=== PATIENT | male | born 1995 | race Caucasian/White ===

== ENCOUNTER 2016-08-12 15:23 | Outpatient (CLI) ==
[2016-02-05 11:46] VITALS: BMI 16.7
[2016-08-12 15:45] LABS: BASOPHILS % (AUTO) 0.3 % (0.0-3.0); EOSINOPHILS # (AUTO) 0.2 K/ul (0.0-0.7); EOSINOPHILS % (AUTO) 2.5 % (0.0-7.0); HEMATOCRIT 44.5 % (42.0-52.0); HEMOGLOBIN 15.9 g/dl (14.0-18.0); IMMATURE GRANULOCYTE % (AUTO) 0.3 % (0.0-5.0); LYMPHOCYTES % (AUTO) 34.3 (10.0-50.0); MEAN CORPUSCULAR HGB CONC 35.7 (31.8-35.4); MEAN CORPUSCULAR VOLUME 89.5 fl (80.0-94.0); MONOCYTES # (AUTO) 0.3 K/uL (0.4-2.0); MONOCYTES % (AUTO) 4.9 (0-10); NEUTROPHILS # (AUTO) 3.4 K/ul (2.0-6.9); NEUTROPHILS % (AUTO) 57.7; PLATELET COUNT 270 10^3/uL (140-440); RED BLOOD COUNT 4.97 10^6/ul (4.70-6.10); WHITE BLOOD COUNT 5.89 K/ul (4.2-10.2)
[2016-08-12 15:46] LABS: BILIRUBIN,URINE Negative (NEGATIVE); KETONES,URINE Trace (NEGATIVE); LEUKOCYTE ESTERASE ,URINE Trace (NEGATIVE); NITRITE,URINE Positive (NEGATIVE); PH,URINE 7.5 (5-9); PROTEIN,URINE Trace (NEGATIVE); URINE, BLOOD Negative (NEGATIVE)
[2016-08-12 15:49] LABS: ADD URINE MICROSCOPIC YES
[2016-08-12 15:51] LABS: BACTERIA,URINE 3+ (NOT PRESENT)
[2016-08-12 15:59] LABS: ALBUMIN 4.1 g/dL (3.4-5.0); ALBUMIN/GLOBULIN RATIO 1.21; ANION GAP 11.2; BILIRUBIN,TOTAL 0.47 mg/dL (0.00-1.20); BUN/CREATININE RATIO 12.69; CALCIUM 9.4 mg/dL (8.2-10.2); CREATININE 0.63 mg/dL (0.60-1.10); POTASSIUM 4.2 mmol/L (3.5-5.1); TOTAL PROTEIN 7.5 g/dL (6.4-8.2)
--- NOTE | 2016-08-12 16:39 | CT ---
EXAM: CT abdomen pelvis without contrast HISTORY: Left flank pain for 1 week COMPARISON: None TECHNIQUE: Serial axial images of the abdomen pelvis were performed from the lung bases through the inferior pelvis without contrast. These were viewed in multiple planes. FINDINGS: The lung bases are clear. Evaluation is limited due to lack of contrast and metallic artifact from the fusion rods in the thor acic and upper lumbar spine. The left kidney demonstrates no stone, hydronephrosis or hydroureter. The right kidney is unremarkable. These are both limited due to streak artifact from adjacent hard cota. The liver is normal. The gallbladder demonstrates layering sludge/stones with no pericholecy stic fluid. The spleen is unremarkable. Limited evaluation of the pancreas is normal. The stomach is distended with debris. The small bowel in the abdomen pelvis is unremarkable. The appendix contains gas. The colon contai ns a moderate amount of stool throughout its course. Urinary bladder is nondistended with no visual ized stone. The osseous structures demonstrate intact posterior fusion rods and screw fixation at L 2 and L3 with deformity at T12 with scattered facet arthropathy. At the area of deformity, T11-T12, there is severe central and neural foraminal narrowing. IMPRESSION: 1. No acute intra-abdominal abnormality or obstructive uropathy to account for patient's left flank pain. 2. Gallstones without evidence of cholecystitis. 3. Hardware in the thorax lumbar spine with deformity contributing to severe central narrowing at T 11-T12. Evaluation is limited due to streak artifact from adjacent hardware.
== END 2016-08-12 15:24 | disposition home or self-care (01) ==
LOC: RAD 15:23
PROVIDERS: ATTEND Emergency Medicine
DX: R10.32 Left lower quadrant pain (principal); G82.20 Paraplegia, unspecified; R33.9 Retention of urine, unspecified; R35.0 Frequency of micturition
CPT/HCPCS: 36415; 80053; 81001; 85025; 87086; 87186

== ENCOUNTER 2016-10-15 16:05 | Outpatient (CLI) | payer OTHER ==
[2016-02-05 11:46] VITALS: BMI 16.7
[2016-10-15 16:24] LABS: BILIRUBIN,URINE Negative (NEGATIVE); KETONES,URINE Negative (NEGATIVE); LEUKOCYTE ESTERASE ,URINE 1+ (NEGATIVE); NITRITE,URINE Positive (NEGATIVE); PROTEIN,URINE Trace (NEGATIVE); URINE, BLOOD Trace-lysed (NEGATIVE)
[2016-10-15 16:26] LABS: ADD URINE MICROSCOPIC YES
[2016-10-15 16:27] LABS: BACTERIA,URINE 3+ (NOT PRESENT)
== END 2016-10-15 16:06 | disposition home or self-care (01) ==
LOC: LAB 16:05
PROVIDERS: ATTEND Nurse Practitioner Family
DX: R82.90 Unspecified abnormal findings in urine (principal)
CPT/HCPCS: 81001; 87086; 87186

== ENCOUNTER 2018-10-28 18:52 | Emergency (ER) ==
[2018-10-28] MEDS ORDERED: SODIUM CHLORIDE 1,000 ML IV STA (19:02)
[2018-10-28] MEDS ORDERED: MORPHINE 2 MG/ML SYRINGE IVP STA ×2 (19:02→20:23)
[2018-10-28] MEDS ORDERED: ZOFRAN 4 MG/2 ML IVP STA (19:03)
[2018-10-28 19:27] VITALS: BMI 19.6
[2018-10-28] MEDS ORDERED: MORPHINE 2 MG/ML SYRINGE ONE (19:58)
[2018-10-28] MEDS ORDERED: DILAUDID 1 MG/ML SYRINGE IVP STA ×2 (20:20→21:25)
[2018-10-28] MEDS ORDERED: ZOSYN 3.375 GM 3.375 GM in SODIUM CHLORIDE 50 ML IV STA (21:12)
--- NOTE | 2018-10-28 21:18 | CT ---
EXAM: CT abdomen pelvis with and without contrast HISTORY: Left flank pain COMPARISON: CT abdomen pelvis 08/12/2016 TECHNIQUE: Serial axial images of the abdomen pelvis were performed before and after 75 mL is of Omn ipaque IV contrast was administered. These were obtained from the lung bases through the inferior pe lvis. FINDINGS: The lung bases are clear. There is free air in the abdomen and pelvis and a non dependent presentation. Liver is unremarkable. The gallbladder is been resected. Adrenal glands are unremarkable. The kidn eys are normal. Spleen is unremarkable. Pancreas is normal. The stomach is unremarkable. There is minimal gas in the abdominal mesentery. The small bowel is unremarkable. The colon demonst rates thickening and inflammatory stranding surrounding the distal sigmoid colon. There is fluid in the right lower quadrant. The appendix is normal in appearance. There is thickening and mild enhanc ement of the terminal ileum. Urinary bladder contains a Wiseman catheter. The osseous structures demo nstrate degenerative disease of the spine and posterior fusion hardware. IMPRESSION: 1. Free air in the abdomen pelvis consistent with ruptured hollow viscus. The site of ruptured gudelia ow viscus is not definitively identified. 2. There is thickening and inflammation involving the sigmoid colon suggestive of inflammation/infec tion. 3. There is thickening and enhancement of the wall of the terminal ileum with low attenuation fluid in the right lower quadrant suggestive of ileitis. 4. There is a Wiseman catheter in the bladder. Critical results were called to Dr. Cao at 9:13 p.m. same day as exam.
--- NOTE | 2018-10-28 21:20 | ED.PDOC ---
General ED Provider: Dr. SHARDA MENSAH-ER Chief Complaint: Abdominal Pain Stated Complaint: im hurting Time Seen by Physician: 19:25 Mode of Arrival: Wheelchair Information Source: Patient, Family Exam Limitations: No limitations Nursing and Triage Documentation Reviewed and Agree: Yes Does patient meet sepsis criteria?: No System Inflammatory Response Syndrome: Not Applicable Sepsis Protocol: For patient's 13 years and over: Temp is 96.8 and below OR 101 and greater Pulse >90 BPM Resp >20/minute Acutely Altered Mental Status Are patient's symptoms suggestive of a new infection, such as: -Pneumonia -Skin, Soft Tissue -Endocarditis -UTI -Bone, Joint Infection -Implantable Device -Acute Abdominal Infection -Wound Infection -Meningitis -Blood Stream Catheter Infection -Unknown GI Complaint Exam - Abdominal Pain Complaint/Exam Onset: Gradual Duration: several hours Symptoms Are: Still present Timing: Constant Initial Severity: Mild Current Severity: Moderate Location of Pain: Diffuse Character: Reports: Dull, Aching Alleviating: Reports: None Associated Signs and Symptoms: Reports: Decreased appetite, Nausea Abdominal Findings: Present: Rebound tenderness Differential Diagnoses: Appendicitis, Bowel Obstruction Review of Systems - Review Of Systems Constitutional: Reports: No symptoms Eyes: Reports: No symptoms Ears, Nose, Mouth, Throat: Reports: No symptoms Respiratory: Reports: No symptoms Cardiac: Reports: No symptoms GI: Reports: Abdominal pain, Nausea : Reports: No symptoms Musculoskeletal: Reports: No symptoms Skin: Reports: No symptoms Neurological: Reports: No symptoms Endocrine: Reports: No symptoms Hematologic/Lymphatic: Reports: No symptoms All Other Systems: Reviewed and Negative Past Medical History - Past Medical History Previously Healthy: Yes Endocrine: Reports: None Cardiovascular: Reports: None Respiratory: Reports: None Hematological: Reports: None Gastrointestinal: Reports: None Genitourinary: Reports: None Neuro/Psych: Reports: Other (paralized from the knees down) Musculoskeletal: Reports: Other Cancer: Reports: None - Surgical History General Surgical History: Reports: Orthopedic (back surgeries neck neck surgeries leg surgeries) - Family History Family History: Reports: Unknown - Social History Smoking Status: Former smoker Hx Substance Use: No Alcohol Screening: None - Immunizations Tetanus Shot up to Date: Yes Physical Exam - Physical Exam Appearance: Well-appearing, No pain distress, Well-nourished Pain Distress: Moderate Eyes: ROGELIO ENT: Ears normal, Nose normal, Oropharynx normal Neck: Supple Respiratory: Airway patent, Breath sounds clear, Breath sounds equal, Respirations nonlabored Cardiovascular: RRR, Pulses normal, No rub, No murmur GI/: Soft, Nontender, No masses, Bowel sounds normal, No Organomegaly Musculoskeletal: Normal strength, ROM intact, No edema, No calf tenderness Skin: Warm, Dry, Normal color Neurological: Sensation intact Psychiatric: Affect appropriate, Mood appropriate Interpretation - Radiology Interpretation Radiology Interpretation By: Radiologist Radiology Results: Positive Exam Interpreted: CT Scan Critical Care Note - Critical Care Note Total Time (mins): 30 Course - Course Hematology/Chemistry: 10/28/18 19:22 10/28/18 19:22 Orders, Labs, Meds: Lab Review 10/28/18 10/28/18 10/28/18 19:22 19:22 20:19 WBC 16.43 H RBC 4.83 Hgb 15.6 Hct 45.4 MCV 94.0 MCH 32.3 H MCHC 34.4 RDW Coeff of Henri 12.9 Plt Count 280 Immature Gran % (Auto) 0.5 Neut % (Auto) 90.0 Lymph % (Auto) 4.7 L [place] % (Auto) 4.6 Eos % (Auto) 0.1 Baso % (Auto) 0.1 Immature Gran # (Auto) 0.1 Neut # (Auto) 14.8 H Lymph # (Auto) 0.8 [place] # (Auto) 0.8 Eos # (Auto) 0.0 Baso # (Auto) 0.0 ESR 2 Sodium 140.7 Potassium 3.40 L Chloride 102.5 Carbon Dioxide 28.1 Anion Gap 13.50 BUN 8.1 L Creatinine 0.53 L Estimated GFR (MDRD) 194.00 BUN/Creatinine Ratio 15.28 Glucose 117.9 H Calcium 9.00 Total Bilirubin 1.60 H AST 39.7 ALT 49.0 Alkaline Phosphatase 71.1 Total Protein 6.99 Albumin 4.28 Globulin 2.71 Albumin/Globulin Ratio 1.57 Amylase 79.4 Lipase 49.7 Urine Color Yellow Urine Clarity Cloudy Urine pH 6.0 Ur Specific [place] 1.020 Urine Protein Negative Urine Glucose (UA) Negative Urine Ketones 2+ Urine Blood Negative Urine Nitrite Positive Urine Bilirubin Negative Urine Urobilinogen 1.0 Ur Leukocyte Esterase 1+ Urine Microscopic WBC 20-30 Ur Squamous Epith Cells 5-10 Urine Bacteria 4+ Orders Category Date Time Status NPO REMINDER: IMAGING ONCE CARE 10/28/18 19:03 Completed TRANSFER TO OUTSIDE FACILITY .TO [facility] 10/28/18 21:25 Active (CHRISTELLE WALKER) WRITE TRANSFER/SBAR NOTE ONCE CARE 10/28/18 21:25 Completed DISCHARGE ASSESSMENT ONCE DISCHARGE 10/28/18 21:25 Completed WRITE DISCHARGE NOTE ONCE DISCHARGE 10/28/18 21:25 Completed ED IV/MEDIPORT/POWERPORT .ONCE EMERGENCY 10/28/18 19:02 Active AMYLASE Stat LAB 10/28/18 19:22 Completed CBC W/ AUTO DIFF Stat LAB 10/28/18 19:22 Completed COMPREHENSIVE METABOLIC PANEL Stat LAB 10/28/18 19:22 Completed ESR Stat LAB 10/28/18 19:22 Completed LIPASE Stat LAB 10/28/18 19:22 Completed URINALYSIS C & S IF INDICATED Stat LAB 10/28/18 20:19 Completed URINE CULTURE Stat LAB 10/28/18 20:19 Completed 0.9 % Sodium Chloride [Saline Flush] MEDS 10/28/18 19:02 Discontinued 1 syr IVF PRN PRN Hydromorphone HCl [Dilaudid 1 mg/ml Syringe] MEDS 10/28/18 20:20 Discontinued 1 mg IVP ONCE STA Hydromorphone HCl [Dilaudid 1 mg/ml Syringe] MEDS 10/28/18 21:25 Discontinued 1 mg IVP ONCE STA Morphine Sulfate [Morphine 2 mg/ml Syringe] MEDS 10/28/18 19:58 Discontinued 2 mg .ROUTE .STK-MED ONE Morphine Sulfate [Morphine 2 mg/ml Syringe] MEDS 10/28/18 19:02 Discontinued 2 mg IVP ONCE STA Morphine Sulfate [Morphine 2 mg/ml Syringe] MEDS 10/28/18 20:23 Discontinued 2 mg IVP ONCE STA Ondansetron HCl/Pf [Zofran 4 mg/2 ml] MEDS 10/28/18 19:03 Discontinued 4 mg IVP ONCE STA Piperacillin Sodium/Tazobactam [Zosyn 3.375 gm] 3.375 MEDS 10/28/18 21:12 Discontinued gm 0.9 % Sodium Chloride [Sodium Chloride] 50 ml IV ONCE Sodium Chloride 0.9% [Sodium Chloride] 1,000 ml MEDS 10/28/18 19:[address] ABDOMEN/PELVIS W/WO CONTRAS Stat RADS 10/28/18 19:03 Completed CXR [CHEST, 1V AP ONLY] Stat RADS 10/28/18 19:03 Completed Medications Discontinued Medications Generic Name Dose Route Start Last Admin Trade Name Robert PRN Reason Stop Dose Admin Hydromorphone HCl 1 mg 10/28/18 20:20 10/28/18 20:35 Dilaudid 1 Mg/Ml Syringe IVP 10/28/18 20:21 1 mg ONCE STA Administration Hydromorphone HCl 1 mg 10/28/18 21:25 10/28/18 21:35 Dilaudid 1 Mg/Ml Syringe IVP 10/28/18 21:26 1 mg ONCE STA Administration Sodium Chloride 1,000 mls @ 1,000 mls/hr 10/28/18 19:02 10/28/18 19:10 Sodium Chloride IV 10/28/18 20:01 1,000 mls/hr BOLUS STA Administration Piperacillin Sod/Tazobactam 50 mls @ 50 mls/hr 10/28/18 21:12 10/28/18 21:21 Sod 3.375 gm/ Sodium Chloride IV 10/28/18 22:11 50 mls/hr ONCE STA Administration Morphine Sulfate 2 mg 10/28/18 19:02 10/28/18 19:09 Morphine 2 Mg/Ml Syringe IVP 10/28/18 19:03 2 mg ONCE STA Administration Morphine Sulfate 2 mg 10/28/18 20:23 10/28/18 19:15 Morphine 2 Mg/Ml Syringe IVP 10/28/18 20:24 2 mg ONCE STA Administration Ondansetron HCl 4 mg 10/28/18 19:03 10/28/18 19:09 Zofran 4 Mg/2 Ml IVP 10/28/18 19:04 4 mg ONCE STA Administration Sodium Chloride 1 syr 10/28/18 19:02 10/28/18 19:10 Saline Flush IVF 1 syr PRN PRN Administration To flush IV Vital Signs: Temp Pulse Resp BP Pulse Ox 10/28/18 21:30 98.4 F 92 H 24 109/52 L 99 10/28/18 19:22 98.9 F 93 H 19 118/76 99 Departure - Departure Time of Disposition: 21:24 Disposition: TSF SHORT-TRM HOSP Discharge Problem: Perforated bowel Instructions: Abdominal Pain (ED) Condition: Fair Pt referred to PMD for follow-up: Yes IPMP verified?: No Allergies/Adverse Reactions: Allergies No Known Allergies Allergy (Verified 10/28/18 18:59) Transfer Form Completed: Yes Disposition Discussed With: Patient, Family
--- NOTE | 2018-10-28 21:40 | DI ---
EXAM: Single, portable AP view(s) chest. HISTORY: Abdominal pain. COMPARISON: None. TECHNIQUE: Single, portable APview(s) of the chest. FINDINGS: There are postoperative changes in the thoracolumbar spine. Lungs: The lung voulmes are normal. The lungs are clear without consolidation or effusion. There are no suspicious nodules. There is no pneumothorax. Cardiovascular: The heart size and pulmonary vasculature is normal.. The aorta is unremarkable. Blanca/Mediastinum: Normal. Osseous structures. Normal for age. IMPRESSION: No acute pulmonary disease.
[2018-10-28 21:45] VITALS: BP 109/52; TEMP 98.4
== END 2018-10-28 22:20 | disposition short-term general hospital (02) ==
LOC: ED 18:52
DX: K63.1 Perforation of intestine (nontraumatic) (principal); R10.9 Unspecified abdominal pain
CPT/HCPCS: 36415; 80053; 81001; 82150; 83690; 85025; 85651; 87086; 87186; 96361; 96365; 96366; 96375; 96376; 99285

== ENCOUNTER 2018-10-28 22:18 | Outpatient (CLI) ==
[2018-10-28 18:59] VITALS: BMI 18.2
== END 2018-10-28 22:39 | disposition short-term general hospital (02) ==
LOC: AMBL 22:18
PROVIDERS: ATTEND Family Medicine
DX: R10.12 Left upper quadrant pain (principal); R10.32 Left lower quadrant pain; G82.20 Paraplegia, unspecified